=== PATIENT | male | born 1980 | race Two or more races ===

== ENCOUNTER → 2016-12-04 | Outpatient (REF) | payer OTHER ==
[2016-12-04 12:44] LABS: PROLACTIN 8.8 NG/ML (2.1-17.7)
[2016-12-04 12:45] LABS: ESTRADIOL 24.3 PG/ML (<39.8); FOLLICLE STIMULATING HORMONE 5.7 mIU/mL (1.4-18.1); LUTEINIZING HORMONE 5.2 mIU/mL (1.5-9.3)
[2016-12-06 00:06] LABS: SEX HORMONE BINDING GLOBULIN 22.3 nmol/L (16.5-55.9)
== END ==
LOC: M LABSMT 07:43
PROVIDERS: ATTEND Nurse Practitioner Women's Health
DX: E29.1 Testicular hypofunction (principal)

== ENCOUNTER → 2017-02-23 | Outpatient (CLI) | payer OTHER ==
--- NOTE | 2017-02-23 09:06 | REP ---
CT LUMBAR SPINE WITHOUT CONTRAST: HISTORY: Radiculopathy. A diffuse disc bulge is present at the L1-2 level. There is minimal compression of the thecal sac. The L1 nerves exit the neural foramina without compression. A diffuse disc bulge is present at the L2-3 level. There is minimal compression of the thecal sac. The L2 nerves exit the neural foramina without compression. A diffuse disc bulge is present at the L3-4 level. There is minimal compression of the thecal sac. The L3 nerves exit the neural foramina without compression. A diffuse disc bulge is present at the L4-5 level. There is minimal compression of the thecal sac. The L4 nerves exit the neural foramina without compression. A diffuse disc bulge is present at the L5-S1 level. There is minimal compression of the thecal sac. There is hypertrophy of the posterior articulating facets. The L5 nerves exit the neural foramina without compression. The T12-L1 through L2-3 and L4-5 levels are decreased in height consistent with disc degeneration. There is no subluxation. IMPRESSION: Diffuse disc bulges at the L1-2 through L5-S1 levels with minimal thecal sac compression. Signed by Moe Harrison MD 02/23/2017 09:23 A
== END ==
LOC: M RAD 08:19
PROVIDERS: ATTEND Orthopaedic Surgery
DX: M54.5 Low back pain (principal)